=== PATIENT | male | born 1995 | race Two or more races ===

== ENCOUNTER 2018-10-12 07:36 | Outpatient (CLI) | payer OTHER | END 2018-10-12 07:37 | disposition critical access hospital (66) | LOC: EMS 07:36 | PROVIDERS: ATTEND Surgery | DX: S38.1XXA Crushing injury of abdomen, lower back, and pelvis, initial encounter (principal); W23.0XXA Caught, crushed, jammed, or pinched between moving objects, initial encounter | CPT/HCPCS: A0425; A0427 ==

== ENCOUNTER 2018-10-12 07:58 | Emergency (ER) | payer OTHER ==
[2018-10-12] MEDS ORDERED: SODIUM CHLORIDE 0.9% 1,000 ML IV ONE (08:06)
--- NOTE | 2018-10-12 08:13 | ED Physician Documentation ---
History of Present Illness - Stated complaint Stated Complaint: TRAUMA - Chief complaint Chief Complaint: Trauma Deandre - History obtained from History obtained from: Patient - History of Present Illness Timing: Prior to arrival - Additonal information Additional information: Patient is a previously healthy 23-year-old male presenting from the [facility] with report of crush injury to the pelvis that occurred just prior to arrival. Patient reports that he was manually trying to lift a trailer of approximate weight of 502,000 pounds to a mother vehicle when it slipped and pinned him between the trailer and vehicle. Patient reports that he was able to walk several steps before collapsing. Patient complains of suprapubic abdominal tenderness, but denies head injury or pain, neck pain, back pain, chest or rib pain, other abdominal pain, extremity pain or injury. Patient also denies nausea, vomiting, but admits to feeling lightheaded when the event happened. Patient denies any changes in sensation or strength to extremities. Patient was otherwise at his normal state of health and without complaint prior to incident. No other improving or worsening factors noted. Patient started on IV fluids and received fentanyl 100 mcg by ambulance. Review of Systems Cardiac: denies: Chest pain / pressure Respiratory: denies: Dyspnea GI: reports: Abdominal Pain. denies: Nausea, Vomiting Skin: denies: Laceration (s) Musculoskeletal: denies: Neck pain, Back pain, Extremity pain Neurologic: denies: Focal weakness, Numbness PD PAST MEDICAL HISTORY - Past Medical History Past Medical History: No - Past Surgical History Past Surgical History: No - Allergies Allergies/Adverse Reactions: Allergies Allergy/AdvReac Type Severity Reaction Status Date / Time No Known Drug Allergies Allergy Verified 10/12/18 08:06 PD ED PE NORMAL - Vitals Vital signs reviewed: Yes - General General: Alert and oriented X 3, No acute distress, Well developed/nourished - HEENT HEENT: Atraumatic, PERRL (No nystagmus. No trauma.), EOMI, Moist mucous membranes, Pharynx benign, Dentition benign - Neck Neck: No bony TTP - Cardiac Cardiac: RRR, No murmur, Strong equal pulses - Respiratory Respiratory: No respiratory distress, Clear bilaterally, Other (Trachea midline) - Abdomen Abdomen: Soft, Non distended, Other (Pelvis stable and non tender, wrapped in towel). No: Non tender (Mild suprapubic tenderness) - Back Back: No spinal TTP - Derm Derm: Normal color, Warm and dry, No rash - Extremities Extremities: No deformity, No tenderness to palpate, No edema, No calf tenderness / cord - Neuro Neuro: Alert and oriented X 3, No motor deficit, No sensory deficit - Psych Psych: Normal mood, Normal affect Results - Vitals Vitals: Vital Signs - 24 hr 10/12/18 10/12/18 10/12/18 08:01 08:36 09:13 Temperature 36.3 C L Heart Rate 55 L 62 60 Respiratory 20 16 14 Rate Blood Pressure 152/84 H 127/77 108/82 H O2 Saturation 97 100 100 10/12/18 09:52 Temperature 37.0 C Heart Rate 56 L Respiratory 15 Rate Blood Pressure 128/81 H O2 Saturation 100 Oxygen O2 Source Room air - Labs Labs: Laboratory Tests 10/12/18 10/12/18 10/12/18 09:00 09:00 09:00 WBC 8.4 RBC 5.01 Hgb 14.9 Hct 45.1 MCV 90.0 MCH 29.7 MCHC 33.0 RDW 12.2 Plt Count 152 MPV 10.8 Neut # (Auto) 7.0 H Lymph # (Auto) 0.8 L Nash # (Auto) 0.6 Eos # (Auto) 0.0 Baso # (Auto) 0.0 Absolute Nucleated RBC 0.00 Nucleated RBC % 0.0 PT 12.7 H INR 1.1 APTT 26.7 Sodium 141 Potassium 4.6 Chloride 105 Carbon Dioxide 23 Anion Gap 13.0 BUN 16 Creatinine 1.1 Estimated GFR (MDRD) 82 L Glucose 89 Calcium 9.4 Total Bilirubin 0.9 AST 21 ALT 20 Alkaline Phosphatase 61 Total Protein 7.5 Albumin 4.9 Globulin 2.6 Albumin/Globulin Ratio 1.9 Lipase 24 Urine Color Urine Clarity Urine pH Ur Specific Wolf Urine Protein Urine Glucose (UA) Urine Ketones Urine Occult Blood Urine Nitrite Urine Bilirubin Urine Urobilinogen Ur Leukocyte Esterase Ur Microscopic Review Urine Culture Comments 10/12/18 09:30 WBC RBC Hgb Hct MCV MCH MCHC RDW Plt Count MPV Neut # (Auto) Lymph # (Auto) Nash # (Auto) Eos # (Auto) Baso # (Auto) Absolute Nucleated RBC Nucleated RBC % PT INR APTT Sodium Potassium Chloride Carbon Dioxide Anion Gap BUN Creatinine Estimated GFR (MDRD) Glucose Calcium Total Bilirubin AST ALT Alkaline Phosphatase Total Protein Albumin Globulin Albumin/Globulin Ratio Lipase Urine Color YELLOW Urine Clarity CLEAR Urine pH 6.5 Ur Specific Wolf <=1.005 Urine Protein NEGATIVE Urine Glucose (UA) NEGATIVE Urine Ketones 15 H Urine Occult Blood NEGATIVE Urine Nitrite NEGATIVE Urine Bilirubin NEGATIVE Urine Urobilinogen 0.2 (NORMAL) Ur Leukocyte Esterase NEGATIVE Ur Microscopic Review NOT INDICATED Urine Culture Comments NOT INDICATED PD MEDICAL DECISION MAKING - ED course Complexity details: reviewed results, re-evaluated patient, considered андрей yunior, d/w patient, d/w [employer] consultant ED course: Patient presenting [place]. Patient arrives on backboard without c- collar, speaking, in no respiratory distress, hemodynamically stable, and otherwise comfortable. Primary and secondary surveys are relatively unremarkable except for mild suprapubic abdominal tenderness. Patient's pelvis remains wrapped in a blanket and despite request, no pelvic binder available in hospital. Plain films of chest and pelvis appear unremarkable and awaiting further radiology evaluation. Patient continues on IV fluids and does not require repeat pain medications at this time. Screening lab work including coagulation studies and type and screen ordered, although have low suspicion for need to administer blood at this time. CT chest/abdomen/pelvis also ordered.CT imaging returned extremely unremarkable except for incidental splenic lesion finding which was communicated to patient and radiology read also provided directly to him. [place] around pelvis removed and patient able to sit up and tolerate oral intake. Remainder screening lab work and urinalysis also unremarkable. At this time, do not feel patient requires further work-up, consult, hospitalization. Discussed supportive cares, return precautions, and appropriate follow-up. Patient voiced understanding and is comfortable with discharge plan. Departure - Departure Disposition: 01 Home, Self Care Clinical Impression: History of pelvic trauma Condition: Good Instructions: ED Contusion Soft Tissue Follow-Up: your,doctor [Other] - Within 3 Days Shankar Estrada MD [Provider Admit Priv/Credential] - Within 3 Days Comments: Recommend rest, ibuprofen/Tylenol as needed, stretching, massage, heat application if needed. Please follow-up with both primary care physician and general surgery next 2 to 3 days. Return to ED sooner if experience new or worsening symptoms. Forms: Activity restrictions
[2018-10-12] MEDS ORDERED: IOVERSOL 320 100 ML VIAL IVP ONE ×2 (08:17→15:16)
--- NOTE | 2018-10-12 08:30 | CONSULTATION NOTE ---
Referring Provider Name of Referring Provider:: Dr. Shelton Consult Date: 10/12/18 Chief Complaint - Chief Complaint Chief Complaint: Trauma activation for crush injury to pelvis History of Present Illness - Admitted From Admitted From:: Not admitted. - History Obtained From Records Reviewed: Yes but paucity of information History obtained from: Patient Exam Limitations: None - History of Present Illness HPI Comment/Other: Patient is a 23-year-old male who was temporarily pinned between a tractor and a trailer. He states that he was pinned for approximately 1 second and the tractor withdrew allowing him to fall onto the ground. In our emergency depa rtment he complains primarily of some pressure in his lower abdomen but he also had a sheet tied around his pelvis to stabilize his pelvis. He is conversant and states that he did not pass out. He is not short of breath. He does not complain of numbness or altered sensorium. He is not on any medications, he does not have any chronic medical issues, there is no disease that runs in the family, he does not drink alcohol or use recreational drugs. He stopped smoking when his grandmother . There has been no history of previous operation. 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 : reports: None HEENT: reports: None Psych: reports: None Musculoskeletal: reports: None Derm: reports: None MRSA Hx?: No - Substance History Use: Uses substance without health or social issues: NONE Meds/Allgy - Allergies Allergies/Adverse Reactions: Allergies Allergy/AdvReac Type Severity Reaction Status Date / Time No Known Drug Allergies Allergy Verified 10/12/18 08:06 Review of Systems - Constitutional Constitutional: denies: Fatigue - Eyes Eyes: denies: Pain - Ears, Nose & Throat Ears, Nose & Throat: denies: Ear pain - Cardiovascular Cariovascular: denies: Irregular heart rate, Palpitations, Chest pain - Respiratory Respiratory: denies: Cough, Sputum production, Wheezing - Gastrointestinal Gastrointestinal: denies: Abdominal pain, Constipation, Diarrhea - Genitourinary Genitourinary: denies: Dysuria - Neurological Neurological: denies: General weakness, Focal weakness - All Other Systems All Other Systems: reports: Reviewed and negative Exam - Vital Signs Reviewed Vital Signs: Yes Vital Signs: Vital Signs x48h Temp Pulse Resp BP Pulse Ox 10/12/18 08:01 36.3 C L 55 L 20 152/84 H 97 - Physical Exam General Appearance: positive: No acute distress Eyes Bilateral: positive: Normal inspection, No lid inflammation, Conjunctivae nml, No scleral icterus, Other (No subconjunctival hemorrhage.) ENT: positive: Pharynx nml, No signs of dehydration Neck: positive: Nml inspection, No JVD, Trachea midline. negative: Swelling/bruising, Tracheal deviation Respiratory: positive: Chest non-tender, No respiratory distress, Breath sounds nml Cardiovascular: positive: Regular rate & rhythm Abdomen: positive: Non-tender, Nml bowel sounds, No distention. negative: Tenderness, Guarding, Rebound Skin: positive: Color nml Extremities: positive: Non-tender, Nml appearance. negative: Calf tenderness Neurologic/Psychiatric: positive: Oriented x3, Motor nml, Sensation nml, Mood/affect nml Conclusion/Plan - Diagnosis Diagnosis: 23-year-old male crushed between a tractor in a trailer - Plan Plan: Chest x-ray and pelvic films avoid been done and to my read are normal. Hemodynamically he has remained stable. His complaints are of some abdominal pressure and she will be further worked up with a CAT scan of the abdomen and pelvis. Depending on these findings here may or may not be able to be discharged. I am awaiting the final readings on the radiographic studies. My reads on the pelvic films, chest x-ray, and CT scan of chest abdomen pelvis failed to reveal any life-threatening disease process. With these findings and his benign physical examination I will turn his care over to my colleague Dr. Shelton.
--- NOTE | 2018-10-12 08:48 | XRAY Report ---
Reason: chest pain Procedure Date: 10/12/2018 Accession Number: [id number] / [id number] Procedure: XR - Chest 1 View X-Ray CPT Code: 98232 FULL RESULT: EXAM: CHEST RADIOGRAPHY EXAM DATE: 10/12/2018 08:23 AM. CLINICAL HISTORY: Chest pain. Trauma. COMPARISON: None. TECHNIQUE: 1 view. FINDINGS: Lungs/Pleura: No focal opacities evident. No gross evidence of pleural effusion or pneumothorax on this limited supine exam. Mediastinum: Within exam limitations, the cardiomediastinal contour is normal. Other: None. IMPRESSION: No acute cardiopulmonary abnormality. [facility]
--- NOTE | 2018-10-12 08:53 | XRAY Report ---
Reason: crush injury to pelvis Procedure Date: 10/12/2018 Accession Number: [id number] / [id number] Procedure: XR - Pelvis 1 View CPT Code: FULL RESULT: EXAM: PELVIS RADIOGRAPHY EXAM DATE: 10/12/2018 08:23 AM. CLINICAL HISTORY: Crush injury to pelvis. COMPARISON: None. TECHNIQUE: 1 view. FINDINGS: Bones: No fractures or bone lesions. Joints: Unremarkable. No pubic symphyseal diastasis. SI joints, hip joints preserved. Soft Tissues: Unremarkable. IMPRESSION: 1. No acute osseous abnormality. [facility]
[2018-10-12 09:14] LABS: BASOPHILS % (AUTO) 0.4 %; EOSINOPHILS % (AUTO) 0.2 %; HGB - HEMOGLOBIN 14.9 g/dL (14.0-18.0); LYMPHOCYTES # (AUTO) 0.8 10^3/uL (1.5-3.5); LYMPHOCYTES % (AUTO) 9.7 %; MEAN CORPUSCULAR HEMOGLOBIN 29.7 pg (27.0-31.0); MEAN PLATELET VOLUME 10.8 fL (7.4-11.4); MONOCYTES # (AUTO) 0.6 10^3/uL (0.0-1.0); MONOCYTES % (AUTO) 6.6 %; NEUTROPHILS % (AUTO) 82.5 %; PLT - PLATELET COUNT 152 10^3/uL (130-450); RED BLOOD COUNT 5.01 10^6/uL (4.70-6.10); RED CELL DISTRIBUTION WIDTH 12.2 % (12.0-15.0); WHITE BLOOD COUNT 8.4 x10^3/uL (4.8-10.8)
--- NOTE | 2018-10-12 09:18 | CT Report ---
Reason: crush injury to pelvis Procedure Date: 10/12/2018 Accession Number: [id number] / [id number] Procedure: CT - Abdomen/Pelvis W CPT Code: FULL RESULT: EXAM: CT ABDOMEN AND PELVIS WITH CONTRAST EXAM DATE: 10/12/2018 08:41 AM. CLINICAL HISTORY: Crush injury to pelvis. COMPARISONS: CHEST W/ 10/12/2018 8:28 AM. TECHNIQUE: Routine helical CT imaging was performed through the abdomen and pelvis. IV contrast: 100 cc Optiray 320. Enteric contrast: No. Reconstructions: Coronal and sagittal. In accordance with CT protocol optimization, one or more of the following dose reduction techniques were utilized for this exam: automated exposure control, adjustment of mA and/or KV based on patient size, or use of iterative reconstructive technique. FINDINGS: Lung Bases: Unremarkable. Liver: Normal. No masses. Gallbladder/Bile Ducts: Unremarkable. Spleen: No splenomegaly. There is an ovoid hypodense focus at the posterior margin of the spleen measuring 14 mm. This lesion has intermediate low attenuation measuring approximately 30 HU. Pancreas: Normal. Adrenal Glands: Normal. Kidneys: Normal. No masses or hydronephrosis. Peritoneal Cavity/Bowel: Normal. No free fluid, free air or adenopathy. No masses or acute inflammatory process. The appendix is well visualized and normal. Pelvic Organs: Normal. The bladder and visualized pelvic organs are within normal limits. Vasculature: No aneurysms or other significant abnormality. Bones: No significant abnormality. Other: None. IMPRESSION: 1. No acute traumatic abnormality of the abdomen or pelvis identified. No free air or free fluid. No fracture identified. 2. Incidentally noted small ovoid splenic lesion measuring 14 mm, with intermediate low density. Lesion is technically indeterminate. Lesion is indeterminate. Follow up MRI or CT is recommended in 6 and 12 months. Management above is based on recommendations outlined in an ACR White Paper: Jason Caro. et al. Managing Incidental Findings on Abdominal and Pelvic CT and MRI, Part 3: White Paper of the ACR Incidental Findings Committee II on Splenic and Tanja Findings. Journal of the [place] [employer] 10, 833-839 (2013). RADIA
--- NOTE | 2018-10-12 09:23 | CT Report ---
Reason: crush injury to pelvis Procedure Date: 10/12/2018 Accession Number: [id number] / [id number] Procedure: CT - CHEST W CPT Code: FULL RESULT: EXAM: CT CHEST EXAM DATE: 10/12/2018 08:41 AM. CLINICAL HISTORY: Crush injury to pelvis. Chest pain. COMPARISONS: ABDOMEN/PELVIS W/ 10/12/2018 8:28 AM CHEST 1 VIEW 10/12/2018 8:00 AM CHEST W/ 10/12/2018 8:28 AM. TECHNIQUE: Routine helical CT imaging was performed through the chest. IV contrast: 100 cc Optiray 320. Reconstructions: Coronal and sagittal. In accordance with CT protocol optimization, one or more of the following dose reduction techniques were utilized for this exam: automated exposure control, adjustment of mA and/or KV based on patient size, or use of iterative reconstructive technique. FINDINGS: Lungs/Pleura: No nodules, bronchial thickening, consolidation, or edema. Pulmonary vasculature is normal. No pericardial or pleural effusion. No pneumothorax. Mediastinum: Normal. No adenopathy or masses. The heart and great vessels are normal. Bones: Unremarkable. No fracture identified. Visualized Abdomen: Unremarkable. Please see separately reported CT of the abdomen and pelvis with contrast for additional evaluation. Other: None. IMPRESSION: Normal chest CT. No pulmonary consolidation, pleural effusion, pneumothorax, rib fracture, or other acute traumatic abnormality identified. RAD[facility]
[2018-10-12 09:33] LABS: ALBUMIN 4.9 g/dL (3.2-5.5); ALBUMIN/GLOBULIN RATIO 1.9 (1.0-2.2); BILIRUBIN,TOTAL 0.9 mg/dL (0.2-1.0); CALCIUM 9.4 mg/dL (8.5-10.3); CREATININE 1.1 mg/dL (0.6-1.2); TOTAL PROTEIN 7.5 g/dL (6.7-8.2)
[2018-10-12 09:37] LABS: INR 1.1 (0.8-1.2); PT - PROTHROMBIN TIME 12.7 secs (9.9-12.6)
[2018-10-12 09:44] LABS: PARTIAL THROMBOPLASTIN TIME 26.7 secs (24.9-33.3)
[2018-10-12 09:52] LABS: BILIRUBIN,URINE NEGATIVE (NEGATIVE); GLUCOSE, URINE (UA) NEGATIVE (NEGATIVE); KETONES,URINE (UA) 15 mg/dL (NEGATIVE); LEUKOCYTE ESTERASE, URINE NEGATIVE (NEGATIVE); NITRITE,URINE NEGATIVE (NEGATIVE); OCCULT BLOOD,URINE NEGATIVE (NEGATIVE); PH,URINE 6.5 PH (5.0-7.5); PROTEIN,URINE NEGATIVE (NEGATIVE); UROBILINOGEN,URINE 0.2 (NORMAL) E.U./dL (NORMAL)
[2018-10-12 09:54] LABS: CLARITY,URINE CLEAR (CLEAR)
[2018-10-12 10:32] VITALS: BP 125/65
== END 2018-10-12 10:32 | disposition home or self-care (01) ==
LOC: ED 07:58
DX: S38.1XXA Crushing injury of abdomen, lower back, and pelvis, initial encounter (principal); W23.0XXA Caught, crushed, jammed, or pinched between moving objects, initial encounter; Y93.89 Activity, other specified; Y92.139 Unspecified place military base as the place of occurrence of the external cause; D73.89 Other diseases of spleen
CPT/HCPCS: 36415; 71045; 71260; 72170; 74177; 80053; 81003; 83690; 85025; 85610; 85730; 86850; 86900; 86901; 96360; 99282; 99284; Q9967; 81001; 87086